=== PATIENT | male | born 1960 | race Hispanic/Latino ===

== ENCOUNTER 2025-01-17 12:09 | Emergency (ER) | payer MEDICARE, SELFPAY ==
[2025-01-17 12:10] VITALS: BP 140/70; PULSE 77; RESP 16; TEMP 36.8; O2SAT 99; BMI 28.5
--- NOTE | 2025-01-17 13:02 | CT_ITS ---
PROCEDURE: BRAIN/HEAD WITHOUT CONTRAST 01/17/2025 REASON FOR EXAM: RIGHT EYE WILL NOT CROSS MIDLINE TECHNIQUE: Procedure Code: CTBR Modality: CT Procedure: BRAIN/HEAD WITHOUT CONTRAST Coronal and Sagittal reconstruction series were provided. One or more dose reduction techniques were used (e.g., Automated exposure control, adjustment of the mA and/or kV according to patient size, use of iterative reconstruction technique. RADIATION DOSE SUMMARY: CTDlvol: 45 mGy DLP: 796 mGycm COMPARISON: CT angiogram of the same day FINDINGS: Brain: There is no evidence of hemorrhage, acute ischemia or mass. No extra- axial fluid collection, midline shift or mass effect. Symmetric, bilateral mineralization is shown in the basal ganglia. This is benign. CSF Spaces: Mild generalized cerebral atrophy Sinuses/Mastoids: Mucous retention cyst or polyp in the maxillary sinuses. Polyp is seen in the nasal cavity on the left protruding towards the nasopharynx. Bones: No fracture. CT/Brain/Head without Contrast IMPRESSION: No evidence of acute ischemia at this time. Stroke Alert: No acute ischemia The critical findings in the findings and impression above were relayed directl y by me by telephone to MD Krish on 01/17/2025 at 1:51 pm with readback verification. Reading Location: [id number]
--- NOTE | 2025-01-17 13:02 | CT_ITS ---
PROCEDURE: STROKE CTA HEAD AND NECK W/CON 01/17/2025 REASON FOR EXAM: RIGHT EYE WILL NOT CROSS MIDLINE TECHNIQUE: Procedure Code: [id number] Modality: CT Procedure: STROKE CTA HEAD AND NECK W/CON Multiplanar Sagittal and Coronal images were obtained. 3D post processing was performed CONTRAST: Isovue 370 VOLUME: 95 mL One or more dose reduction techniques were used (e.g., Automated exposure control, adjustment of the mA and/or kV according to patient size, use of iterative reconstruction technique). RADIATION DOSE SUMMARY: CTDlvol: 37 mGy DLP: 570 mGycm COMPARISON: Head CT of the same day FINDINGS: Aortic Arch: Normal size and branching pattern. No significant atherosclerotic plaque. Brachiocephalic and Subclavians: Minimal atherosclerotic plaque. RIGHT Carotid: Right CCA: Unremarkable. Right ICA: Minimal plaque at the origin. Minimal plaque at the cavernous and supraclinoid portions. Maximum stenosis (NASCET): <10 % Right ECA: Unremarkable. LEFT Carotid: Left CCA: Unremarkable Left ICA: Minimal plaque at the origin. Minimal plaque at the cavernous and supraclinoid portions. Maximum stenosis (NASCET): <10 % Left ECA: Unremarkable Vertebrals: Left is dominant. RIGHT Vertebral: PICA termination. Otherwise patent. LEFT Vertebral: Patent Anatomy: Patent bilateral posterior communicating arteries Aneurysm or avm: No intracranial aneurysms or large vascular malformations are identified. Anterior cerebral arteries: Unremarkable. Middle cerebral arteries: No large vessel occlusion. Basilar artery: Small caliber but patent. Posterior cerebral arteries: Widely patent posterior communicating arteries. Hypoplastic P1 segments. Other major branches of the posterior circulation: Unremarkable. Major venous structures: Unremarkable. Other findings: Neck: No lymphadenopathy. Lungs: Lung apices are clear. Bones: Bones are unremarkable. CT/STROKE CTA Head AND Neck W/Con IMPRESSION: 1. No large vessel occlusion. 2. No aneurysm or stenosis. 3. Small caliber right vertebral artery with a PICA termination. Patent bilat eral posterior communicating arteries. Documentation of the stroke alert reporting to the ordering/covering physician' s was made on the dedicated head CT done at the same time. Reading Location: [id number]
--- NOTE | 2025-01-17 13:02 | EDS_ITS ---
HPI History of Present Illness Chief Complaint: Eye Problem Narrative Narrative: Chief complaint and HPI: 64-year-old gentleman with no significant past medical history presents for CT head after seeing rental clerk tool and equipment due to right eye preferring right gaze. Patient states approximately 3 days ago he developed pain in his right eye. Saw the rental clerk tool and equipment in [place] in which he was placed on polymyxin eyedrops for irritation. He states yesterday while working he was having intermittent blurry vision in which his coworker noticed that his right eye was gazing to the right. He denies any headache, lightheadedness, dysarthria, aphasia, weakness, numbness or tingling. States he followed up with his rental clerk tool and equipment Dr. Dubon in which she did a full eye exam today and states his eye exam was unremarkable and referred him to the ER for imaging of the head. He did have his eyes dilated today. Review of systems: See HPI Medications: As listed on the chart Allergies: As listed on the chart PFSH: Per chart Vital signs: As listed on the chart. Reviewed. Physical exam: Gen: A&O x3, NAD Head: Normocephalic, atraumatic Eye: PERRL but eyes are dilated, No periorbital swelling or ecchymosis, no proptosis, no pain with extra ocular movements, patient has full EOMI of the left eye however his right eye prefers right lateral gaze and will not cross midline, no lacerations, no sclera chemosis or injection, no foreign body. ENT: TMs clear BL, moist mucous membranes, posterior oropharynx unremarkable, uvula midline, tonsils not enlarged, no facial asymmetry Neck: Trachea midline, Full ROM CV: RRR, no murmurs Resp: Lungs CTA BL, no w/r/c Musc: Full ROM, no deformity, strength +5/5 in all extremities, no pronator drift, no ataxia Skin: Warm, dry Neuro: Alert, oriented, grossly intact, sensation intact, no focal deficits, no dysarthria, no aphasia Psych: Cooperative, appropriate mood and affect PFS PFS Medical History no medical history Allergy/AdvReac Type Severity Reaction Status Date / Time Penicillins (PCN) Allergy Severe Rash Verified 01/17/25 12:13 Family History no significant family his Surgical History no surgical history Social History Smoking Status: Never smoker EXAM Physical Exam Const Vital Signs: 01/17/25 12:10 Temperature 98.2 F Temperature Source Temporal Pulse Rate 77 Respiratory Rate 16 Blood Pressure 140/70 H Blood Pressure Mean 93 Pulse Ox 99 MDM MDM MDM Narrative Medical decision making narrative: 64-year-old gentleman with no significant past medical history presents for CT head after seeing rental clerk tool and equipment due to right eye preferring right gaze. Patient states approximately 3 days ago he developed pain in his right eye. Saw the rental clerk tool and equipment in [place] in which he was placed on polymyxin eyedrops for irritation. He states yesterday while working he was having intermittent blurry vision in which his coworker noticed that his right eye was gazing to the right. States he followed up with his rental clerk tool and [employer] Dr. Dubon in which she did a full eye exam today and states his eye exam was unremarkable and referred him to the ER for imaging of the head. He did have his eyes dilated today. Patient denies any neurological deficits other than his right eyelid right lateral gaze. See physical exam findings. Differential diagnosis includes but is not limited to CVA, intracranial mass, arterial stenosis/occlusion. CBC and BMP unremarkable. CT of the brain without any acute ischemic changes. Patient has a mucous retention cyst or polyp in maxillary sinus. Polyp is seen in the nasal cavity on the left protruding towards the nasopharynx. CTA of the head and neck shows no LVO. No aneurysm or stenosis. Small caliber right vertebral artery with the [employer] termination. Patent bilateral posterior communicating arteries. At this point in time, no clear etiology to explain patient's right lateral gaze. Will contact Dr. Dubon from ophthalmology. The number was [phone]. I spoke with Dr. Dubon over the phone. Eye exam was unremarkable. Recommends patient being admitted for MRI brain. I spoke with Dr. Quintana, hospitalist. Declined admission. Would like me to order MRI brain in the emergency department and discharge home if negative. Patient's MRI of the brain is pending at this time. Patient was signed out to oncoming physician. They will await final results. Discharge Plan Triage Chief Complaint: Eye Problem ED Provider: Vaughn Maguire Dx/Rx/DC Orders Primary Care Provider: Ernestine Yo NP Referrals: Ernestine Yo [facility], [facility] [Primary Care Provider, Family Practice] Print Language: Maori
[2025-01-17 13:18] LABS: Hematocrit 44.6 % (40-54); Hemoglobin 14.5 g/dL (13.0-16.5); Mean Corp Hgb Conc 32.5 g/dL (32-36); Mean Corpuscular Volume 84.5 fL (80-94); Mean Platelet Vol. 10.0 fl (6.2-12.0); Platelet Count 187 K/mm3 (150-450); RBC Distribution Width CV 14.9 % (11.6-14.6); RBC Distribution Width SD 46.1 fl (35.1-43.9); Red Blood Count 5.28 M/mm3 (4.6-6.2); White Blood Count 5.0 K/mm3 (4.4-11.0)
[2025-01-17 13:41] LABS: Anion Gap 11 (5-15); BUN 15 mg/dL (4-19); BUN/Creat Ratio 19.8 RATIO (10-20); Calcium,Total 9.3 mg/dL (7.6-11.0); Carbon Dioxide 23.8 mmol/L (21.0-32.0); Chloride 104 mmol/L (98-108); Estimated Creatinine Clearance 82.49 ml/min (50-250); Glucose 133 mg/dL (70-99); Potassium 4.0 mmol/L (3.3-5.1)
[2025-01-17 14:10] VITALS: BP 142/79; PULSE 69
--- NOTE | 2025-01-17 14:29 | MRI_ITS ---
PROCEDURE: BRAIN W/WO CONTRAST 01/17/2025 REASON FOR EXAM: CVA RULE OUT, RIGHT EYE RIGHT LATERAL GAZE TECHNIQUE: Procedure Code: [id number] Modality: MR Procedure: BRAIN W/WO CONTRAST Multiplanar and multisequence images of the brain and orbits were obtained. Additional views of the orbits were obtained. CONTRAST: Clariscan VOLUME: 13 mL COMPARISON: Correlation with CT head of the same day FINDINGS: No acute infarct or hemorrhage. The brain parenchyma is within normal limits. No extra-axial fluid collection. No significant mass effect or herniation of the brain. Global cerebral volume loss. No hydrocephalus. The basal cisterns are patent. The intracranial large vessel arterial flow voids are maintained. The mastoid air cells clear. Polypoid mucosal thickening in the left maxillary. Nonenhancing polypoid mass in the left nasal cavity measuring approximally 1.1 x 4.2 x 1.8 cm effaces the posterior aspect of the left nasal cavity and protrudes into the nasopharynx, compatible with a polyp. The ocular globes appear normal in contour. The lenses are in normal anatomic location. The optic nerves, optic chiasm, and optic tracts appear within normal limits. The extraocular muscles, orbital fat, and lacrimal glands appear within normal limits. There is no evidence of mass in the orbits. The calvarial bone marrow signal is within normal limits. MRI/Brain W/WO Contrast IMPRESSION: 1. No acute infarct, hemorrhage, significant mass effect, or intracranial enhan cing lesion. 2. Unremarkable bilateral orbits. 3. Left nasal cavity polyp and polypoid mucosal thickening in the left maxillar y sinus is compatible with left sinonasal polyposis. Reading Location: [id number]
[2025-01-17 16:00] VITALS: BP 133/76; PULSE 80; O2SAT 100
[2025-01-17 18:23] VITALS: BP 134/69; PULSE 73; RESP 18; O2SAT 100
[2025-01-17 19:23] VITALS: BP 134/69; PULSE 73; RESP 18; TEMP 36.8; O2SAT 100
== END 2025-01-17 19:27 | disposition home or self-care (01) ==
PROVIDERS: Emergency Provider Surgery; PCP Nurse Practitioner Family; Visit Provider Surgery
DX: H51.0 Palsy (spasm) of conjugate gaze (principal)
CPT/HCPCS: 70450; 70496; 70498; 70553; 80048; 85027; 99284; Q9967; A4216